=== PATIENT | female | born 1955 | race Caucasian/White ===

== ENCOUNTER → 2016-05-11 | Outpatient (CLI) | payer BC, OTHER | LOC: FIMAGING 08:11 | DX: Z12.31 Encounter for screening mammogram for malignant neoplasm of breast (principal); Z85.3 Personal history of malignant neoplasm of breast | CPT/HCPCS: G0202 ==

== ENCOUNTER 2017-02-17 09:13 | Emergency (ER) | payer BC ==
[2017-02-17 09:22] VITALS: BP 127/81; PULSE 114; RESP 20; TEMP 98.6; O2SAT 93
[2017-02-17] MEDS ORDERED: PROPARACAINE 0.5% 15 ML OPHT DROP ONE (09:37)
[2017-02-17] MEDS ORDERED: FLUORESCEIN SODIUM 1 MG STRIP OP ONE (09:37)
--- NOTE | 2017-02-17 09:45 | EDPHY ---
HPI/HX/ROS/PE/MDM Narrative: CHIEF COMPLAINT: Sinus / eye infection HPI: This patient is a 61 year old female complaining of sinus and eye infection symptoms. She began feeling sick with cold symptoms. She subsequently developed sinus pressure, and then a pressure sensation in her eyes. Today, she has noted redness in her eyes with associated discomfort and drainage. She endorses a burning sensation as well. She denies fever. She has been taking Advil Cold & Sinus for symptom relief. No chest, pain, shortness of breath, vomiting, diarrhea, urinary complaints, or other associated symptoms. REVIEW OF SYSTEMS: Aside from elements discussed in the HPI, a comprehensive 10-point review of systems was reviewed and is negative. PMH: Asthma. History of rhino-sinuplasty 20 years ago. SOCIAL HISTORY: . Nonsmoker. Lives in [place]. PHYSICAL EXAM: General:Patient is alert, in no acute distress. ENT: Bilateral scleral injection. ENT inspection normal. Neck: Normal inspection. Full range of motion. Respiratory:No respiratory distress. Breath sounds normal bilaterally. Cardiovascular: Regular rate and rhythm. Strong peripheral pulses. Normal cap refill. Abdomen:The abdomen is nontender to palpation. There are no peritoneal signs. There are normal bowel sounds. Back: Normal to inspection. No tenderness to palpation. Skin: Normal color. No rash. Warm and dry. Extremities: Normal appearance. Full range of motion. Neuro: Oriented x3. Normal motor function. Normal sensory function. ED Course: 61 y/o female presents with sinus and eye infection symptoms. Exam reveals bilateral scleral injection. The patient is afebrile and her vitals are within normal limits. Plan to discharge home in good condition with prescription for Azithromycin, Ocuflox drops, and Flonase for symptom relief. Follow up and return precautions discussed. She is comfortable with this plan. General Time Seen by Provider: 02/17/17 09:33 Initial Vital Signs: Initial Vital Signs Temperature (C) 37 C 02/17/17 09:19 Heart Rate 114 H 02/17/17 09:19 Respiratory Rate 20 18 09:19 Blood Pressure 127/81 H 02/17/17 09:19 O2 Sat (%) 93 02/17/17 09:19 O2 Delivery Mode Room Air Allergies/Adverse Reactions: amoxicillin Allergy (Verified 02/17/17 09:18) Penicillins Allergy (Verified 02/17/17 09:18) Home Medications: Medication Instructions Recorded AZITHROMYCIN [Z-PACK] 250 mg PO DAILY 5 Days packet 02/17/17 Asmanex 02/17/17 Fluticasone Nasal [Flonase Nasal 2 sprays NASAL DAILY #1 mdi 02/17/17 [place]] Ofloxacin 0.3% [Ocuflox 0.3%] 1 drops OP QID 7 Days opht.btl 02/17/17 Tamoxifen Citrate 02/17/17 Ventolin Hfa 02/17/17 Departure - Departure Disposition: Home, Routine, Self-Care Clinical Impression: Acute conjunctivitis of both eyes Qualifiers: Acute conjunctivitis type: unspecified Qualified Code(s): H10.33 - Unspecified acute conjunctivitis, bilateral Sinusitis Qualifiers: Sinusitis location: unspecified location Chronicity: acute Recurrence: not specified as recurrent Qualified Code(s): J01.90 - Acute sinusitis, unspecified Condition: Good Instructions: Sinusitis (ED), Conjunctivitis (ED) Additional Instructions: 1. Take azithromycin as prescribed. It is important to finish your entire course of antibiotics even if you are feeling better. 2. Use Ocuflox drops as prescribed. 3. Take Flonase as prescribed. This medication is also available over the counter should you need it again in the future. 4. Follow up with your primary care provider in 2-3 days for further evaluation. 5. Return to the emergency department for fever, chest pain, shortness of breath , increased pain or discharge from your eyes, changes in vision, or other worsening of condition. Referrals: Eliane Brewer MD [[facility] [place] Primary Care Provider] - As per Instructions Prescriptions: AZITHROMYCIN [Z-PACK] 250 mg PO DAILY 5 Days packet Fluticasone Nasal [Flonase Nasal [place]] 2 sprays NASAL DAILY #1 mdi Ofloxacin 0.3% [Ocuflox 0.3%] 1 drops OP QID 7 Days opht.btl Report Scribed for: Georges Graves Report Scribed by: Dina Vasques Date of Report: 02/17/17 Time of Report: 10:40 Physician Review and Approval Statement: Portions of this note were transcribed by an ED scribe. I personally performed the history, physical exam, and medical decision making; and confirm the accuracy of the information in the transcribed note.
== END 2017-02-17 10:23 | disposition home or self-care (01) ==
DX: H10.33 Unspecified acute conjunctivitis, bilateral (principal); J01.90 Acute sinusitis, unspecified; J45.909 Unspecified asthma, uncomplicated

== ENCOUNTER → 2017-05-16 | Outpatient (CLI) | payer BC | LOC: FIMAGING 10:40 | PROVIDERS: ATTEND Internal Medicine Hematology & Oncology | DX: Z12.31 Encounter for screening mammogram for malignant neoplasm of breast (principal); Z85.3 Personal history of malignant neoplasm of breast; Z92.21 Personal history of antineoplastic chemotherapy; Z92.3 Personal history of irradiation; Z80.3 Family history of malignant neoplasm of breast ==

== ENCOUNTER → 2017-05-24 | Outpatient (CLI) | payer BC | LOC: FIMAGING 12:48 | PROVIDERS: ATTEND Internal Medicine Hematology & Oncology | DX: N63.20 Unspecified lump in the left breast, unspecified quadrant (principal) ==

== ENCOUNTER → 2018-06-03 | Outpatient (CLI) | payer OTHER | LOC: FIMAGING 10:41 | PROVIDERS: ATTEND Internal Medicine Hematology & Oncology | DX: Z12.31 Encounter for screening mammogram for malignant neoplasm of breast (principal); Z85.3 Personal history of malignant neoplasm of breast; Z80.3 Family history of malignant neoplasm of breast ==